=== PATIENT | male | born 1970 | race Caucasian/White ===

== ENCOUNTER 2024-04-28 15:02 | Emergency (ER) | payer BC, SELFPAY ==
--- NOTE | 2024-04-28 15:00 | RT.EKG_ITS ---
APPROVED REPORT Exam: Resting ECG Reason for Exam: epigastric pain Patient Location: E HR:66 bpm ECG Measurements Heart Rate 66 AXIS MS 151 P 19 QRSd 111 QRS 60 QT 378 T 42 QTc 398 Conclusion Sinus rhythm...normal P axis, V-rate 60- 99 ST elev, probable normal early repol pattern...ST elevation, age<55
--- NOTE | 2024-04-28 15:00 | DI.US_ITS ---
Exam(s) US ABDOMEN EXAM: US ABDOMEN CLINICAL HISTORY: right upper abdominal pain TECHNIQUE: Ultrasound abdomen performed using standard protocol. COMPARISON: No exams were available for comparison FINDINGS: Exam somewhat limited by patient having difficulty holding his breath. LIVER: Normal size and echogenicity. No focal liver lesions are seen. GALLBLADDER: Mildly contracted.. Patient NPO for 2 hours. No evidence of cholelithiasis. No evidenc e of wall thickening. No pericholecystic fluid identified. TOTH'S SIGN: Negative. BILIARY SYSTEM: No intrahepatic or extrahepatic biliary ductal dilation. KIDNEYS: Kidneys are symmetric in size. No evidence of renal calculi. No evidence of hydronephrosis. No renal mass or cyst identified. PANCREAS: Normal where visualized. SPLEEN: Not enlarged. ABDOMINAL AORTA AND IVC: Visualized portions normal caliber. ASCITES: None seen. IMPRESSION: Normal sonographic appearance of the upper abdomen. DATA REPOSITORY:
[2024-04-28 15:05] VITALS: BP 156/64; PULSE 68; RESP 20; O2SAT 99
--- NOTE | 2024-04-28 15:19 | ED.GENADUL_ITS ---
Discharge Plan Disposition Patient Disposition: Home Condition: Stable Discharge Details Clinical Impression: Upper abdominal pain Primary Care Provider: Unknown,Unknown ED Provider: Madhu Burrell Home Meds and New Rx's Prescriptions: New sucralfate [Carafate] 1 gram tablet 1 g PO Q6H Qty: 60 0RF ondansetron 4 mg tablet,disintegrating 4 mg PO Q8H PRN (Reason: nausea and vomiting) Qty: 30 0RF Discharge Instructions Additional Instructions: I placed you on the follow-up list to try and see general surgery to discuss having an endoscopy should be contacted with an appointment, if you do not hear anything in a few days you can call their office at [phone] You taking [id number] omeprazole daily If you feel more ill, have severe worsening pain or have new symptoms such as persistent vomiting return to the emergency department for reevaluation HPI General Mode of arrival: ambulatory . Date/Time Provider Initiated Documentation: 04/28/24 15:08 . Limitations to Documentation: no limitations . Information obtained by: patient . History of Present Illness 53 year old M presents to the emergency department with the chief complaint of upper abdominal pain, described as moderate, Patient started experiencing this week(s) (3) and it has been constant. No relieving factors improve symptom(s), No exacerbating factors reported . Patient notes denies chest pain and fever/chills. Patient did receive the following treatments prior to arrival, none Related Data Home Medications Medication Instructions Recorded Confirmed ondansetron 4 mg disintegrating 4 mg PO Q8H PRN nausea and 04/28/24 tablet vomiting #30 tabs sucralfate 1 gram tablet (Carafate) 1 g PO Q6H #60 tabs 04/28/24 Previous Rx's Medication Instructions Recorded ondansetron 4 mg disintegrating 4 mg PO Q8H PRN nausea and 04/28/24 tablet vomiting #30 tabs sucralfate 1 gram tablet (Carafate) 1 g PO Q6H #60 tabs 04/28/24 Allergies Allergy/AdvReac Type Severity Reaction Status Date / Time No Known Allergies Allergy Unverified 04/28/24 15:08 General Stated Complaint: Abd Prob ANDRE: 3 Review of Systems All systems reviewed & are unremarkable except as noted in HPI and below Constitutional Constitutional: Denies chills, Denies fever(s) and Denies weakness Cardiovascular Cardiovascular: Denies chest pain and Denies dyspnea Respiratory Respiratory: Denies cough and Denies dyspnea Gastrointestinal Gastrointestinal: Reports abdominal pain and Reports nausea Integumentary/Breasts Skin/Breast: Denies rash Neurologic Neurologic: Denies weakness Exam Const General: no acute distress Orientation: alert [facility] Head: normal to inspection Ears: external ears normal General nose exam: external nose normal Mouth: moist mucous membranes Eyes General: appearance normal, both eyes and all related structures Neck Neck: normal visual inspection Resp Effort & Inspection: normal respiratory effort and able to speak in complete sentences Cardio Rate: regular rate GI Palpation: soft and tender Skin General skin exam: no rashes or lesions noted Neuro General: patient alert and patient oriented x3 Extrem General: normal to inspection Psych Mental Status: mental status grossly normal Course Vital Signs Vital signs: Vital Signs Pulse 68 04/28/24 15:05 Respiratory Rate 20 04/28/24 15:05 Blood Pressure 156/64 H 04/28/24 15:05 Pulse Oximetry 99 04/28/24 15:05 Pulse 68 04/28/24 15:05 Respiratory Rate 20 04/28/24 15:05 Respiratory Effort Normal, Non-Labored 04/28/24 15:09 Blood Pressure 156/64 H 04/28/24 15:05 Blood Pressure Position Sitting 04/28/24 15:05 Pulse Oximetry 99 04/28/24 15:05 Oxygen Delivery Method Room Air 04/28/24 15:05 Oxygen Flow Rate 0 04/28/24 15:05 Medical Decision Making 53-year-old male who denies any chronic medical problems comes in with 3 weeks of upper abdominal pain. He denies any vomiting but has had nausea, no chest pain or difficulty breathing, no diaphoresis. He cannot think of anything that makes the pain better or worse. He denies any prior abdominal surgeries. He is alert speaking clearly on arrival in no distress. He localizes the pain to the right upper quadrant. He is tender in this area, no lower abdominal tenderness. Negative Castro sign. Given location of pain concerning for biliary colic versus cholecystitis, will check a CBC, CMP and a lipase and obtain right upper quadrant ultrasound to further evaluate. Given lack of lower abdominal tenderness doubt entities such as appendicitis. He has no chest pain but will obtain screening EKG and troponin. He evidence of DVT and no significant tachycardia or hypoxia so doubt PE and no tearing back pain to suggest dissection. Labs and imaging unremarkable patient feels mildly better still has some epigastric discomfort. He apparently's been taking omeprazole daily and is concerned for possible H. pylori. Given location of pain will place him on the follow-up list to try and see general surgery as soon as possible for possible endoscopy. Will also add Carafate to his regimen, did also advise that daily marijuana use can cause GI issues such as pain and vomiting. Reassuring workup do not feel CT imaging indicated still has no abdominal tenderness in the lower quadrants Differential Diagnosis Differential Diagnosis: Cholecystitis, biliary colic, pancreatitis, gastritis Imaging Data Radiologic Study: Attestation: I personally reviewed and interpreted this imaging study as follows: Imaging: Ultrasound Radiologist's impression: no acute findings Lab Data Lab results reviewed: Yes I reviewed the patient's lab results. ECG Data Attestation: I personally reviewed and interpreted this ECG (s) as follows: Prior ECG tracings: not available for review Interpretation: Sinus rhythm, rate of 66, NM 151, no STEMI Quality:SDOH Health Related Social Needs: No Data to Display PFSH All Active Problems (Updated 04/28/24 @ 16:06 by Madhu Burrell MD) Upper abdominal pain (Acute) Social History Smoking/Tobacco Use Status: Never Smoking risk assessment performed?: Yes Alcohol Intake: never Drug use: Daily Substance use type: marijuana
[2024-04-28] MEDS: Ketorolac 15 MG/ML VIAL IVP (15:28)
[2024-04-28] MEDS: Droperidol 5 MG/2 ML VIAL 2.5 MG IVP (15:30)
[2024-04-28 15:38] VITALS: BP 156/64; PULSE 68; RESP 20; O2SAT 99
[2024-04-28 15:41] LABS: Abs Immature Grans 0.02 10^3/uL (0.0-0.06); Absolute Basophil Count 0.03 10^3/uL (0.0-0.2); Absolute Eosinophil Count 0.15 10^3/uL (0.0-0.7); Absolute Lymphocyte Count 1.25 10^3/uL (1.2-3.4); Absolute Monocyte Count 0.73 10^3/uL (0.1-0.8); Absolute Neutrophil Count 3.93 10^3/uL (1.2-6.7); Basophils % 0.5 %; Eosinophils % 2.5 %; HCT 41.8 % (40.0-50.0); HGB 14.1 g/dL (13.5-17.5); Immature Grans % 0.3 %; Lymphocytes % 20.5 %; MCH 30.1 pg (27.0-33.0); MCHC 33.7 % (32.0-36.0); MCV 89 fL (80-95); MPV 9.9 fL (8.0-11.0); Monocytes % 11.9 %; Neutrophils % 64.3 %; Platelet Count 219 10^3/uL (130-400); RBC 4.68 10^6/uL (4.36-5.78); RDW 13.3 % (11.8-14.1); RDW-SD 43.6 fL; WBC 6.11 10^3/uL (4.4-10.8)
[2024-04-28 15:57] LABS: ALT 48 U/L (16-63); AST 28 U/L (15-37); Albumin 3.7 g/dL (3.4-5.0); Alkaline Phosphatase 87 U/L (46-116); Anion Gap 6.2 mmol/L (3-11); BUN 9 mg/dL (7-18); Bilirubin, Direct 0.1 mg/dL (0.0-0.2); Bilirubin, Total 0.3 mg/dL (0.2-1.0); CO2 32.8 mmol/L (21.0-32.0); CREATININE 0.8 mg/dL (0.70-1.30); Chloride 100 mmol/L (98-107); Estimated GFR 105.82 (mL/min/1.73m2); Glucose 96 mg/dL (74-106); Lipase 36 U/L (16-77); Potassium 3.6 mmol/L (3.5-5.1); Sodium 139 mmol/L (136-145); Total Protein 6.9 g/dL (6.4-8.2)
[2024-04-28] MEDS: Normal Saline 1,000 ML 1000 ML IV (16:02)
[2024-04-28 16:04] LABS: Troponin I < 50 ng/L (< or =60)
[2024-04-28] MEDS: Sucralfate 1 GM TAB PO (16:27)
--- NOTE | 2024-04-28 17:02 | NUR.NOTE ---
Referral faxed to [facility] for upper abd pain, possible endoscopy, to be done PETRA. Referral faxed to telephone provider section chief: Kay Lawson, no PCP, needs PCP, being referred to Surgery, establish care, routine follow up. Nursing Note:
== END 2024-04-28 16:28 | disposition home or self-care (01) ==
LOC: ER 16:54
PROVIDERS: Emergency Provider Emergency Medicine
DX: R10.13 Epigastric pain (principal); R11.0 Nausea
CPT/HCPCS: 36415; 80053; 83690; 93005; 96374; 96375; 99285; 76700; 82248; 83735; 84484; 85025; 93010; 99284; J1790; J1885

== ENCOUNTER 2025-06-21 10:07 | Emergency (ER) | payer MEDICAID, SELFPAY ==
[2025-06-21 10:11] VITALS: BP 116/70; PULSE 84; RESP 16; TEMP 36.6; O2SAT 96
--- NOTE | 2025-06-21 15:18 | W.ED.GENAD ---
Discharge Plan Disposition Patient Disposition: Home Condition: Stable Discharge Details Clinical Impression: Ruptured varicose vein, Leg pain Primary Care Provider: Unknown,Unknown ED Provider: Emily Archuleta Home Meds and New Rx's Prescriptions: Continued omeprazole 20 mg tablet,delayed release (DR/EC) 20 mg PO DAILY alprazolam [Xanax] 1 tab PO PRN dextroamphetamine-amphetamine [Adderall] 20 mg tablet 40 mg PO DAILY sucralfate [Carafate] 1 gram tablet 1 g PO Q6H Qty: 60 0RF ondansetron 4 mg tablet,disintegrating 4 mg PO Q8H PRN (Reason: nausea and vomiting) Qty: 30 0RF Discharge Instructions Additional Instructions: Apply some Motrin gel or diclofenac gel topically Tylenol as needed for pain elevate your leg you may wear compression stockings idris ordered an ultrasound, call to schedule tomorrow Discharge Orders Other Ambulatory Orders: US lower extremity venous RT (STAT) Timeframe: 20250701 Facility: [facility] - Location: DIAGNOSTIC IMAGING Ordered By: Emily Archuleta Discharge Data Discharge Date/Time-TO BE ENTERED AT DEPARTURE: 06/21/25 11:09 HPI General Date/Time Provider Initiated Documentation: 06/21/25 10:08. HPI Narrative: This 54-year-old male presents with report of pain and swelling to left calf just prior to arrival. States he was walking up a steep hill when he felt some pain in his groin and then some swelling and tenderness to his lateral calf. Denies history of DVT recent flight surgeries long drives or history of coagulopathy. Related Data Home Medications ?Medication ?Instructions ?Recorded ?Confirmed ondansetron 4 mg disintegrating 4 mg PO Q8H PRN nausea and 04/28/24 06/21/25 tablet vomiting #30 tabs sucralfate 1 gram tablet (Carafate) 1 g PO Q6H #60 tabs 04/28/24 06/21/25 omeprazole 20 mg tablet,delayed 20 mg PO DAILY 05/07/24 06/21/25 release alprazolam 1 tab PO PRN 06/21/25 06/21/25 dextroamphetamine-amphetamine 20 40 mg PO DAILY 06/21/25 06/21/25 mg tablet (Adderall) Previous Rx's ?Medication ?Instructions ?Recorded ondansetron 4 mg disintegrating 4 mg PO Q8H PRN nausea and 04/28/24 tablet vomiting #30 tabs sucralfate 1 gram tablet (Carafate) 1 g PO Q6H #60 tabs 04/28/24 Allergies Allergy/AdvReac Type Severity Reaction Status Date / Time No Known Allergies Allergy Unverified 04/28/24 15:08 General Stated Complaint: Vascular ANDRE: 3 Exam Narrative Exam Narrative: Calf with tenderness and swelling with bruise likely consistent with a ruptured varicose vein nontender to remainder of calf neurovascularly intact distal pulses intact no erythema Course Vital Signs Vital signs: Vital Signs Temperature 36.6 C 06/21/25 10:11 Pulse 84 06/21/25 10:11 Respiratory Rate 16 06/21/25 10:11 Blood Pressure 116/70 06/21/25 10:11 Pulse Oximetry 96 06/21/25 10:11 Temperature 36.6 C 06/21/25 10:11 Temperature Source Oral 06/21/25 10:11 Pulse 84 06/21/25 10:11 Respiratory Rate 16 06/21/25 10:11 Respiratory Effort Normal 06/21/25 11:08 Respiratory Depth Normal 06/21/25 11:08 Respiratory Pattern Normal 06/21/25 11:08 Blood Pressure 116/70 06/21/25 10:11 Blood Pressure Position Sitting 06/21/25 10:11 Pulse Oximetry 96 06/21/25 10:11 Oxygen Delivery Method Room Air 06/21/25 10:11 Oxygen Flow Rate 0 06/21/25 10:11 Pain Level 5 06/21/25 10:11 Medical Decision Making 54-year-old male presenting with pain in his calf will order outpatient DVT extremity study for tomorrow. Will encourage ice compression and follow-up Motrin and Tylenol as needed for pain Return precautions reviewed and patient expressed understanding low suspicion clinically for DVT or PE based on assessment and exam PFSH All Active Problems (Updated 06/21/25 @ 10:52 by SARA Kearns) Leg pain (Acute) Ruptured varicose vein (Acute) Social History Smoking/Tobacco Use Status: Never Smoking risk assessment performed?: Yes Alcohol Intake: never Drug use: Daily Substance use type: marijuana Housing: house Do you feel safe at home: Yes Do you feel safe in your relationship?: Yes
== END 2025-06-21 11:09 | disposition home or self-care (01) ==
PROVIDERS: Emergency Provider Physician Assistant
DX: M79.605 Pain in left leg (principal); I83.892 Varicose veins of left lower extremity with other complications
CPT/HCPCS: 99283; 99282

== ENCOUNTER 2025-06-22 11:26 | Emergency (ER) | payer MEDICAID, SELFPAY ==
[2025-06-22 11:31] VITALS: BP 111/67; PULSE 81; RESP 18; TEMP 36.4; O2SAT 98
--- NOTE | 2025-06-22 12:09 | W.ED.GENAD ---
Discharge Plan Disposition Patient Disposition: Home Condition: Stable Discharge Details Clinical Impression: Ruptured varicose vein Primary Care Provider: Unknown,Unknown ED Provider: Jade Leal Home Meds and New Rx's Prescriptions: No Action omeprazole 20 mg tablet,delayed release (DR/EC) 20 mg PO DAILY alprazolam [Xanax] 1 tab PO PRN dextroamphetamine-amphetamine [Adderall] 20 mg tablet 40 mg PO DAILY sucralfate [Carafate] 1 gram tablet 1 g PO Q6H Qty: 60 0RF ondansetron 4 mg tablet,disintegrating 4 mg PO Q8H PRN (Reason: nausea and vomiting) Qty: 30 0RF Discharge Instructions Instructions: Treatment of Varicose Veins of the Leg Additional Instructions: You were seen in the emergency department today for evaluation after an ultrasound, which was negative for deep vein thrombosis. We discussed how your leg is healing, you likely ruptured a varicose vein, and should continue to use ice and elevation to minimize swelling. You can use Tylenol and ibuprofen as needed for management of pain, and should avoid excessive exertion or exercise until your pain is improving. You can always consider compression stockings if your varicose veins are becoming bothersome or bigger. I have placed a referral for a primary care provider, they should be contacting you. Thank you for allowing us to be part of your care. Discharge Data Discharge Date/Time-TO BE ENTERED AT DEPARTURE: 06/22/25 12:19 HPI General Mode of arrival: ambulatory. Date/Time Provider Initiated Documentation: 06/22/25 11:52. Limitations to Documentation: no limitations. Information obtained by: patient. HPI Narrative: This is a 54-year-old male patient here for ultrasound results after a right lower extremity DVT study. Please see the prior ED provider's note for full details of his initial presentation. In brief, the patient had a sudden onset of right lower extremity pain while exercising, with swelling and bruising over the lateral aspect of the right calf concerning for ruptured varicose veins. Today, the patient reports that he has been elevating his leg and icing it, and has noted improvement in the swelling and pain. He states that he has a strong family history of vascular disease and was very concerned about his potential for clot. He has otherwise been in his normal state of health since his prior examination. Related Data Home Medications ?Medication ?Instructions ?Recorded ?Confirmed ondansetron 4 mg disintegrating 4 mg PO Q8H PRN nausea and 04/28/24 06/22/25 tablet vomiting #30 tabs sucralfate 1 gram tablet (Carafate) 1 g PO Q6H #60 tabs 04/28/24 06/22/25 omeprazole 20 mg tablet,delayed 20 mg PO DAILY 05/07/24 06/22/25 release alprazolam 1 tab PO PRN 06/21/25 06/22/25 dextroamphetamine-amphetamine 20 40 mg PO DAILY 06/21/25 06/22/25 mg tablet (Adderall) Previous Rx's ?Medication ?Instructions ?Recorded ondansetron 4 mg disintegrating 4 mg PO Q8H PRN nausea and 04/28/24 tablet vomiting #30 tabs sucralfate 1 gram tablet (Carafate) 1 g PO Q6H #60 tabs 04/28/24 Allergies Allergy/AdvReac Type Severity Reaction Status Date / Time No Known Allergies Allergy Unverified 06/22/25 11:32 General Stated Complaint: Recheck ANDRE: 4 Exam Narrative Exam Narrative: Gen: Awake and alert, in no apparent distress HEENT: Non-icteric sclera Neck: Supple Lungs: No apparent respiratory distress, normal respiratory effort. CV: Appears well perfused, strong distal pulses Abdomen: Non-distended MSK: Moves 4 extremities without apparent limitation in ROM. The patient has no significant calf swelling or peripheral edema, does have an area of bruising over the proximal lateral calf, and evidence of mild varicose veins bilaterally. Strong TP pulses appreciated, preserved strength and sensation of the bilateral lower extremities Skin: Visualized skin without rashes, cyanosis. Neuro: Normal Gait, no obvious focal deficits or facial asymmetry. Speaks in full, clear sentences. Psych: Appropriate for situation. Course Vital Signs Vital signs: Vital Signs Temperature 36.4 C 06/22/25 11:31 Pulse 81 06/22/25 11:31 Respiratory Rate 18 06/22/25 11:31 Blood Pressure 111/67 06/22/25 11:31 Pulse Oximetry 98 06/22/25 11:31 Temperature 36.4 C 06/22/25 11:31 Pulse 81 06/22/25 11:31 Respiratory Rate 18 06/22/25 11:31 Blood Pressure 111/67 06/22/25 11:31 Pulse Oximetry 98 06/22/25 11:31 Medical Decision Making This is a 54-year-old male patient presenting for evaluation after completing an outpatient DVT ultrasound. Differential includes but is not limited to ruptured varicose veins, superficial venous thrombosis, DVT. No evidence of my physical examination for cellulitis or abscess, consider hematoma, no evidence for arterial occlusion. Ultrasound reviewed by myself, radiology notes no DVT and this findings were shared with the patient and he feels much better about his symptoms now that he knows that this is not the case. I did certified drug counselor him on continued ice and elevation, and discussed trial of compression socks which at this time the patient would prefer to avoid. A referral for primary care was placed. At this time, the patient has had a full medical evaluation and is safe for discharge to home. They are hemodynamically stable, ambulatory, and tolerating PO. They are understanding of the follow-up plan and return precautions. They left our facility without incident. Jade Leal MD [facility] All Active Problems (Updated 06/22/25 @ 12:10 by Jade Leal MD) Leg pain (Acute) Ruptured varicose vein (Acute) Social History Smoking/Tobacco Use Status: Never Smoking risk assessment performed?: Yes Alcohol Intake: never Drug use: Daily Substance use type: marijuana Housing: house Do you feel safe at home: Yes Do you feel safe in your relationship?: Yes
[2025-06-22 12:15] VITALS: BP 105/64; PULSE 70; RESP 18; O2SAT 100
== END 2025-06-22 12:19 | disposition home or self-care (01) ==
PROVIDERS: Emergency Provider Emergency Medicine
DX: I83.892 Varicose veins of left lower extremity with other complications (principal)
CPT/HCPCS: 99283; 99282

== ENCOUNTER 2025-06-22 11:42 | Outpatient (CLI) | payer MEDICAID, SELFPAY ==
--- NOTE | 2025-06-22 09:30 | DI.US_ITS ---
Exam(s) US LOWER EXTREMITY VENOUS RT EXAM: US LOWER EXTREMITY VENOUS RT CLINICAL HISTORY: right lateral calf pain, M79.606. TECHNIQUE: Lower extremity venous ultrasound performed using grayscale, color- flow, and spectral Doppler analysis. COMPARISON: No exams were available for comparison FINDINGS: The common femoral, femoral and popliteal veins demonstrate normal compressibility, augmentation, and color Doppler. The posterior tibial and peroneal veins are patent. No saphenous vein thrombosis or other superficial venous thrombosis is seen. No hematoma or Kathleen's cyst is seen. IMPRESSION: Negative lower extremity ultrasound. No evidence of DVT. DATA REPOSITORY:
== END 2025-06-22 12:02 ==
LOC: DI 11:44
PROVIDERS: Visit Provider Physician Assistant
DX: M79.604 Pain in right leg (principal)
CPT/HCPCS: 93971